=== PATIENT | male | born 1955 | race Caucasian/White ===

== ENCOUNTER 2016-11-20 02:19 | Emergency (ER) | payer BC ==
[~2016-11-20] VITALS: Ht 154.9 cm; Wt 84.0 kg
[~2016-11-20 02:19] MED LIST: Ascorbic Acid,Ester- PO; Dulcolax PO; ENDOCET 5-3251 EACH PO; Feosol PO; Keflex PO; LIPITOR10 MG; MACROBID100 MG PO; Miralax, Glycolax PO; NEURONTIN100 MG PO; THERAGRAN1 TABLET PO; Tylenol Regular Stre PO
[2016-11-20 03:53] VITALS: BP 139/96
== END 2016-11-20 03:54 | disposition home or self-care (01) ==
LOC: EME 02:19
DX: N48.39 Other priapism (principal); Z98.890 Other specified postprocedural states; Z85.46 Personal history of malignant neoplasm of prostate; E78.5 Hyperlipidemia, unspecified
CPT/HCPCS: 99281; 99284